=== PATIENT | male | born 1985 | race Caucasian/White ===

== ENCOUNTER 2019-02-22 21:17 | Emergency (ER) | payer OTHER ==
--- NOTE | 2019-02-22 22:36 | EDM.PDOC ---
ED HPI GENERAL MEDICAL PROBLEM - General Chief Complaint: Cardiovascular Problem Stated Complaint: HEART Time Seen by Provider: 02/22/19 22:30 Source of Information: Reports: Patient History Limitations: Reports: No Limitations - History of Present Illness INITIAL COMMENTS - FREE TEXT/NARRATIVE: pt arrived because he had noted some irregularities in his heart over the course of the afternoon. He felt different. At ths time he notes no particular irregularity. He has not had chest pain. Onset: Today, Gradual Duration: Hour(s): Location: Reports: Chest, Other (pt felt like his heart was irregular. ) Associated Symptoms: Reports: No Other Symptoms - Related Data Allergies Allergy/AdvReac Type Severity Reaction Status Date / Time amoxicillin Allergy Hives Verified 02/22/19 21:41 cefaclor [From Ceclor] Allergy Hives Verified 02/22/19 21:41 minocycline Allergy Hives Verified 02/22/19 21:41 Sulfa (Sulfonamide Allergy Hives Verified 02/22/19 21:41 Antibiotics) Home Meds: Home Meds Omeprazole 20 mg PO DAILY 02/22/19 [History] Past Medical History Gastrointestinal History: Reports: GERD - Past Surgical History HEENT Surgical History: Reports: Other (See Below) Other HEENT Surgeries/Procedures: laryngial polyps Musculoskeletal Surgical History: Reports: Arthroscopic Knee, Other (See Below) Other Musculoskeletal Surgeries/Procedures:: ligament replacement, elbow surgery Social & Family History - Tobacco Use Smoking Status *Q: Never Smoker - Caffeine Use Caffeine Use: Reports: Soda - Recreational Drug Use Recreational Drug Use: No ED ROS GENERAL - Review of Systems Review Of Systems: See Below Constitutional: Reports: No Symptoms HEENT: Reports: No Symptoms Respiratory: Reports: No Symptoms Cardiovascular: Reports: Palpitations Endocrine: Reports: No Symptoms GI/Abdominal: Reports: No Symptoms : Reports: No Symptoms Musculoskeletal: Reports: No Symptoms Skin: Reports: No Symptoms Neurological: Reports: No Symptoms ED EXAM, GENERAL - Physical Exam Exam: See Below Free Text/Narrative:: pt arrived with a history of feeling like his heart was irregular this afternoon. He did not have chest pain. He was not around any fumes. He feels ok at this point. Exam Limited By: No Limitations General Appearance: Alert, No Apparent Distress, Other (pupils are equal and reactive. ) Ears: Normal TMs Nose: Normal Inspection Throat/Mouth: Normal Inspection Head: Atraumatic Neck: Normal Inspection Respiratory/Chest: No Respiratory Distress Cardiovascular: Regular Rate, Rhythm, Other (pt was monitored for about 1 hour and no irregularities were seen. His ekg appeared normal. ) GI/Abdominal: Soft, Non-Tender (Male) Exam: Deferred Rectal (Males) Exam: Deferred Back Exam: Normal Inspection Extremities: Normal Inspection Neurological: Alert, Oriented, Normal Cognition Psychiatric: Anxious Course - Vital Signs Last Recorded V/S: Last Vital Signs Temp 36.4 C 02/22/19 21:40 Pulse 80 02/22/19 22:25 Resp 14 02/22/19 22:25 BP 131/79 02/22/19 22:25 Pulse Ox 96 02/22/19 22:25 - Orders/Labs/Meds Orders: Active Orders 24 hr Category Date Time Status EKG Documentation Completion [RC] ASDIRECTED Care 02/22/19 22:29 Active EKG 12 Lead [EK] Routine Ther 02/22/19 22:29 Ordered Labs: Laboratory Tests 02/22/19 02/22/19 02/22/19 Range/Units 22:41 22:41 22:41 WBC 7.7 (4.5-11.0) K/uL RBC 4.97 (4.30-5.90) M/uL Hgb 15.4 H (12.0-15.0) g/dL Hct 45.1 (40.0-54.0) % MCV 91 (80-98) fL MCH 31 (27-31) pg MCHC 34 (32-36) % Plt Count 170 (150-400) K/uL Neut % (Auto) 42 (36-66) % Lymph % (Auto) 44 (24-44) % Brooks % (Auto) 8 H (2-6) % Eos % (Auto) 6 H (2-4) % Baso % (Auto) 1 (0-1) % D-Dimer, Quantitative (0.0-400.0) ng/mL Sodium 141 (140-148) mmol/L Potassium 3.5 L (3.6-5.2) mmol/L Chloride 106 (100-108) mmol/L Carbon Dioxide 29 (21-32) mmol/L Anion Gap 9.5 (5.0-14.0) mmol/L BUN 16 (7-18) mg/dL Creatinine 1.1 (0.8-1.3) mg/dL Est Cr Clr Drug Dosing 84.64 mL/min Estimated GFR (MDRD) > 60 (>60) Glucose 113 H (74-106) mg/dL Calcium 8.8 (8.5-10.1) mg/dL Total Bilirubin 0.3 (0.2-1.0) mg/dL AST 28 (15-37) U/L ALT 64 (12-78) U/L Alkaline Phosphatase 56 (46-116) U/L Troponin I (0.000-0.056) ng/mL Total Protein 6.3 L (6.4-8.2) g/dL Albumin 3.4 (3.4-5.0) g/dL Globulin 2.9 (2.3-3.5) g/dL Albumin/Globulin Ratio 1.2 (1.2-2.2) TSH, Ultra Sensitive 2.344 (0.358-3.740) uIU/mL 02/22/19 02/22/19 Range/Units 22:46 22:47 WBC (4.5-11.0) K/uL RBC (4.30-5.90) M/uL Hgb (12.0-15.0) g/dL Hct (40.0-54.0) % MCV (80-98) fL MCH (27-31) pg MCHC (32-36) % Plt Count (150-400) K/uL Neut % (Auto) (36-66) % Lymph % (Auto) (24-44) % Brooks % (Auto) (2-6) % Eos % (Auto) (2-4) % Baso % (Auto) (0-1) % D-Dimer, Quantitative < 100 (0.0-400.0) ng/mL Sodium (140-148) mmol/L Potassium (3.6-5.2) mmol/L Chloride (100-108) mmol/L Carbon Dioxide (21-32) mmol/L Anion Gap (5.0-14.0) mmol/L BUN (7-18) mg/dL Creatinine (0.8-1.3) mg/dL Est Cr Clr Drug Dosing mL/min Estimated GFR (MDRD) (>60) Glucose (74-106) mg/dL Calcium (8.5-10.1) mg/dL Total Bilirubin (0.2-1.0) mg/dL AST (15-37) U/L ALT (12-78) U/L Alkaline Phosphatase (46-116) U/L Troponin I < 0.017 (0.000-0.056) ng/mL Total Protein (6.4-8.2) g/dL Albumin (3.4-5.0) g/dL Globulin (2.3-3.5) g/dL Albumin/Globulin Ratio (1.2-2.2) TSH, Ultra Sensitive (0.358-3.740) uIU/mL - Re-Assessments/Exams Free Text/Narrative Re-Assessment/Exam: 02/22/19 23:40 pt had a normal rhythm while he was here. He had a normal trop, His ddimer was normal. His father has a history of unexplauined PE. His electrolytes looked good. His tsh was normal. Departure - Departure Time of Disposition: 23:29 Disposition: Home, Self-Care 01 Condition: Fair Clinical Impression: Palpitation Referrals: Kane Montez MD [Primary Care Provider] - Forms: ED Department Discharge Care Plan Goals: 48 hour holter monmitor, push fluids, rtc if he should have a sustained irregularity. - My Orders Last 24 Hours: My Active Orders 02/22/19 22:29 EKG Documentation Completion [RC] ASDIRECTED EKG 12 Lead [EK] Routine - Assessment/Plan Last 24 Hours: My Active Orders 02/22/19 22:29 EKG Documentation Completion [RC] ASDIRECTED EKG 12 Lead [EK] Routine
== END 2019-02-22 23:49 | disposition home or self-care (01) ==
LOC: JP.ED 21:17
DX: R00.2 Palpitations (principal); K21.9 Gastro-esophageal reflux disease without esophagitis; Z88.1 Allergy status to other antibiotic agents; Z88.2 Allergy status to sulfonamides; Z79.899 Other long term (current) drug therapy
CPT/HCPCS: 36415; 80053; 84443; 84484; 85025; 85379; 93005; 99284-25

== ENCOUNTER 2022-04-10 00:04 | Emergency (ER) | payer OTHER ==
[2022-04-10] MEDS ORDERED: Sodium Chloride 0.9% 10 ML Syringe FLUSH PRN (00:06)
[2022-04-10] MEDS ORDERED: Famotidine 20 MG/2 ML SDV IVPUSH ONE (00:06)
[2022-04-10] MEDS ORDERED: EPINEPHrine 1 MG/ML SDV IM ONE (00:06)
[2022-04-10] MEDS ORDERED: diphenhydrAMINE 50 MG/ML SDV IVPUSH ONE (00:06)
[2022-04-10] MEDS ORDERED: methylPREDNISolone Sodium Succinate 125 MG/2 ML SDV IVPUSH ONE (00:06)
[2022-04-10] MEDS ORDERED: hydrOXYzine HCl 25 MG Tab PO ONE (02:50)
== END 2022-04-10 03:11 | disposition home or self-care (01) ==
LOC: JP.ED 00:04
DX: T78.2XXA Anaphylactic shock, unspecified, initial encounter (principal); K21.9 Gastro-esophageal reflux disease without esophagitis; Z88.0 Allergy status to penicillin; Z88.1 Allergy status to other antibiotic agents; Z88.2 Allergy status to sulfonamides; Z79.899 Other long term (current) drug therapy
CPT/HCPCS: 96372; 96374; 96375; 99284; A9270; J0171; J1200; J2930; J3490; 99291

== ENCOUNTER 2022-08-05 22:50 | Emergency (ER) | payer OTHER ==
[2022-08-05] MEDS ORDERED: diphenhydrAMINE 50 MG/ML SDV IM ONE (23:34)
[2022-08-05] MEDS ORDERED: methylPREDNISolone Sodium Succinate 125 MG/2 ML SDV IM ONE (23:41)
[2022-08-05] MEDS ORDERED: Famotidine 20 MG Tab PO ONE (23:42)
[2022-08-05] MEDS ORDERED: Famotidine 20 MG Tab ONE (23:46)
[2022-08-06] MEDS ORDERED: Albuterol 0.083% 2.5 MG/3 ML Neb Soln NEB ONE (00:10)
== END 2022-08-06 01:25 | disposition home or self-care (01) ==
LOC: JP.ED 22:50
DX: T78.40XA Allergy, unspecified, initial encounter (principal); J45.30 Mild persistent asthma, uncomplicated; Z91.09 Other allergy status, other than to drugs and biological substances; Z88.0 Allergy status to penicillin; Z88.2 Allergy status to sulfonamides
CPT/HCPCS: 94640; 94644; 96372; 99283; A9270; J1200; J2930

== ENCOUNTER 2024-06-10 14:49 | Emergency (ER) | payer OTHER ==
[2024-06-10] MEDS: Bacitracin Oint 1 GM U/D Packet TOP ONE (15:22)
[2024-06-10] MEDS: Lidocaine 1% 5 ML VIAL INJECT ONE (15:22)
== END 2024-06-10 16:48 | disposition home or self-care (01) ==
LOC: JP.ED 14:49
DX: S61.012A Laceration without foreign body of left thumb without damage to nail, initial encounter (principal); J45.909 Unspecified asthma, uncomplicated; K21.9 Gastro-esophageal reflux disease without esophagitis; Z86.16 Personal history of COVID-19; Z79.899 Other long term (current) drug therapy; Z88.1 Allergy status to other antibiotic agents; Z88.2 Allergy status to sulfonamides; W29.0XXA Contact with powered kitchen appliance, initial encounter
CPT/HCPCS: 12001; 73140-26-FA; 73140-FA; 99283